=== PATIENT | female | born 1995 | race African-American/Black ===

== ENCOUNTER 2017-11-06 09:32 | Emergency (ER) | payer SELFPAY | END 2017-11-06 23:50 | disposition left against medical advice (07) | LOC: ERS 09:32 | DX: Z53.21 Procedure and treatment not carried out due to patient leaving prior to being seen by health care provider (principal) ==

== ENCOUNTER 2018-07-11 08:30 | Emergency (ER) | payer SELFPAY ==
[2018-07-11 09:24] LABS: ALT (SGPT) 13 U/L (8-55); AST (SGOT) 18 U/L (5-34); Albumin 4.4 g/dL (3.5-5.0); Alkaline Phosphatase 45 U/L (40-150); Anion Gap 14 mmol/L (10-20); BUN (Urea Nitrogen) 14 mg/dL (7.0-18.7); Bilirubin, Total 0.5 mg/dL (0.2-1.2); Calc. Creatinine Clearance 0 mL/min (70-130); Calcium 9.6 mg/dL (7.8-10.44); Carbon Dioxide 23 mmol/L (22-29); Chloride 106 mmol/L (98-107); Estimated GFR-MDRD Greater than 90; Globulin 3.6 g/dL (2.4-3.5); Glucose 95 mg/dL (70-105); Lipase 23 U/L (8-78); Potassium 3.4 mmol/L (3.5-5.1); Sodium 140 mmol/L (136-145)
[2018-07-11 09:30] LABS: #Lymphocytes 1.1 thou/uL (1.20-3.40); #Monocytes 0.3 thou/uL (0.11-0.59); #Neutrophils 4.5 thou/uL (1.40-6.50); %Basophils 0.3 % (0.0-1.0); %Eosinophils 0.7 % (0.0-10.0); %Lymphocytes 18.9 % (21.0-51.0); %Neutrophils 75.1 % (42.0-75.0); Hemoglobin 9.4 g/dL (12.0-16.0); Hypochromia MODERATE=16-30 cells (100X) (0-5/hpf); MDiff Complete? YES; Mean Corpuscular HGB CONC 28.8 g/dL (32.0-36.0); Mean Corpuscular Volume 66.1 fL (78.0-98.0); Mean Platelet Volume 10.4 fL (7.4-10.4); Microcytosis MODERATE=15-30 cells (100X) (0-5/hpf); PLT Morphology Comment Appears Adequate; Platelet Count 246 thou/uL (130-400); Polychromasia SLIGHT = 2-3 cells (100X) (0-2/hpf); RBC Distribution Width 16.7 % (11.5-14.5); Red Blood Cell (RBC) Count 4.95 mill/uL (4.20-5.40); Reflex for Review?? YES
[2018-07-11 09:36] LABS: Bilirubin Negative (Negative); Blood, Urine Negative (Negative); Clarity CLEAR (Clear); Glucose, Urine (Dipstick) Negative (Negative); Leukocyte Small (Negative); Nitrite Negative (Negative); Protein, Urine (Dipstick) Negative (Neg-Trace); Specific Gravity, Urine 1.034 (1.002-1.036); pH, Urine 5.5 (5.0-9.0)
[2018-07-11 09:39] LABS: Bacteria/HPF Rare-Few HPF (None Seen); Hyaline Casts/LPF 0-3 HYALINE CAST LPF (0-3 Hyaline); Pathc Cast-AUWi Flag 0.29 (0-2.49); RBC/HPF 0-3 HPF (0-3)
[2018-07-11 09:42] LABS: Pregnancy Test - Urine (BHCG) Negative (Negative); Pregu Control Background? CLEAR/WHITE (CLR/WHITE); Pregu Control Bar Appear? YES (CONTROL BAR); Specific Gravity 1.034 (1.002-1.036)
== END 2018-07-11 10:15 | disposition home or self-care (01) ==
LOC: ERS 08:30
DX: N39.0 Urinary tract infection, site not specified (principal)
CPT/HCPCS: 36415; 80053; 81003; 81015; 81025; 83690; 85025; 85060; 87086; 99284

== ENCOUNTER 2019-01-23 13:10 | Outpatient (CLI) | payer OTHER ==
--- NOTE | 2019-01-23 13:56 | ULT ---
EXAM: OB ultrasound COMPARISON: None HISTORY: First trimester . TECHNIQUE: Multiplanar grayscale and color Doppler transabdominal sonographic images are obtained. FINDINGS: There is a single intrauterine gestation in variable presentation. Cardiac Doppler demonstr ates heart tones with a heart rate of 155 beats per minute. The placenta is located anteriorly and is low lying. There is a normal amount of amniotic fluid. The cervical length based on transabdominal imaging measures 4.87 centimeters. biometry measurements: BPD 2.09 cm -- 13 weeks 3 days HC 8 cm -- 13 weeks 3 days AC 5.93 cm -- 12 weeks 5 days FL 1.05 cm -- 13 weeks 1 day The estimated gestational age by ultrasound is 13 weeks 1 day with an SUZETTE on07/30/2019. Gestational age by the last menstrual period is 11 weeks 4 days. The estimated weight by ultrasound is unable to be determined due to gestational age. The anatomical structures are not well evaluated due to early gestational age. IMPRESSION: 1. Low-lying placenta. Follow-up evaluation in 4-6 weeks is recommended. 2. Single intrauterine gestation in variable presentation with heart tones documented. Estimate d gestational age by ultrasound is 13 weeks 1 day.
== END 2019-01-23 13:11 | disposition home or self-care (01) ==
LOC: SCSULT 13:10
PROVIDERS: ATTEND Nurse Practitioner
DX: Z34.81 Encounter for supervision of other normal pregnancy, first trimester (principal); Z3A.13 13 weeks gestation of pregnancy
CPT/HCPCS: 76805; 76857

== ENCOUNTER 2019-03-31 15:46 | Outpatient (CLI) | payer OTHER ==
--- NOTE | 2019-03-31 16:53 | ULT ---
US OB Complete STANDARD History: Anatomy scan. Comparison: None. Findings: Real-time grayscale, color, and spectral analysis of the gravid uterus was performed. Single viable intrauterine with average ultrasound age 22 week 3 day with estimated date of delivery August 01, 2019. Estimated weight is 1 lb. 2 oz., 14th percentile. Biometry: Biparietal diameter: 5.38 cm, 22 week 3 day Head circumference: 20.19 cm, 22 week 2 day Abdominal circumference: 17.44 cm, 22 week 3 day Femur length: 3.9 cm, 22 week 4 day Amniotic fluid index: 15.6 cm. heart rate documented at 152 bpm. The position is vertex and the placenta is anterior. No placenta previa. The spine, bladder, diaphragm, kidneys, lateral ventricles, cerebellum, three-vessel cord, nose/lips, four-chamber heart, stomach are all normal. Impression: Single viable intrauterine with average ultrasound age 22 week 3 day with estim ated date of delivery August 01, 2019.
== END 2019-03-31 15:47 | disposition home or self-care (01) ==
LOC: SCSULT 15:46
PROVIDERS: ATTEND Nurse Practitioner
DX: Z34.82 Encounter for supervision of other normal pregnancy, second trimester (principal); Z3A.22 22 weeks gestation of pregnancy
CPT/HCPCS: 76805

== ENCOUNTER 2019-05-18 15:01 | Outpatient (CLI) | payer OTHER ==
--- NOTE | 2019-05-18 15:41 | ULT ---
US OB Complete STANDARD History: Evaluate growth Comparison: Pelvic ultrasound March 2019 Findings: Real-time grayscale color and spectral analysis of the pelvis was performed transabdominal approach. Single viable intrauterine with average ultrasound age 29 week 4 day with estimated date of delivery July 30, 2019. Estimated weight: 3 lbs. 1 oz., 20th percentile Biometry: Biparietal diameter: 7.32 cm, 29 week 2 day Head circumference: 27.04 cm, 29 week 3 day Abdominal circumference: 24.58 cm, 28 weeks 6 day Femur length: 5.8 cm, 30 week 2 day Normal amniotic fluid index of 16.8 cm. Anterior placenta. The fetus is in vertex position. Impression: Normal single viable intrauterine as described.
== END 2019-05-18 15:02 | disposition home or self-care (01) ==
LOC: SCSULT 15:01
PROVIDERS: ATTEND Obstetrics & Gynecology
DX: Z34.83 Encounter for supervision of other normal pregnancy, third trimester (principal); Z3A.29 29 weeks gestation of pregnancy
CPT/HCPCS: 76805

== ENCOUNTER 2019-12-22 14:53 | Emergency (ER) | payer OTHER ==
[2019-12-22] MEDS ORDERED: Metoclopramide HCl 10 MG/2 ML VIAL ONE (15:23)
[2019-12-22] MEDS ORDERED: diphenhydrAMINE 25 MG CAP ONE ×2 (15:23→15:31)
[2019-12-22] MEDS ORDERED: Acetaminophen 500 MG TAB ONE (15:23)
[2019-12-22] MEDS ORDERED: Metoclopramide HCl 10 MG TAB ONE (15:33)
== END 2019-12-22 15:57 | disposition home or self-care (01) ==
LOC: ERS 14:53
DX: O99.89 Other specified diseases and conditions complicating pregnancy, childbirth and the puerperium (principal); R51 Headache; O99.282 Endocrine, nutritional and metabolic diseases complicating pregnancy, second trimester; E86.0 Dehydration; Z3A.20 20 weeks gestation of pregnancy
CPT/HCPCS: 99283; J2765; Q0163

== ENCOUNTER 2020-01-19 06:55 | Outpatient (CLI) | payer OTHER ==
--- NOTE | 2020-01-19 07:37 | ULT ---
Obstetric sonogram HISTORY: Second trimester gestation. evaluation. FINDINGS: Single intrauterine gestation in breech presentation. Cervix is closed and 4.0 cm. Amniotic fluid is within normal limits. Grade 0 placenta is anterior. No gross intracranial abnormalities are evident. spine and kidneys are intact as visualized. Four-chamber heart motion at 146 bpm. Three-vessel cord shows a normal insertion. Measurements are as follows: Biparietal diameter 22 weeks 0 days Head circumference 21 weeks 2 days Abdominal circumference 20 weeks 3 days Femur length 22 weeks 1 day [place] 2 percentile. Estimated date of delivery based on today's sonogram 05/27/2020. IMPRESSION : Single viable intrauterine gestation. Measurements correlate with 21 weeks 4 days gestational age, so mewhat small compared to the reported age based on LMP.
== END 2020-01-19 06:56 | disposition home or self-care (01) ==
LOC: BICULT 06:55
PROVIDERS: ATTEND Family Medicine
DX: Z34.82 Encounter for supervision of other normal pregnancy, second trimester (principal); Z3A.21 21 weeks gestation of pregnancy
CPT/HCPCS: 76805

== ENCOUNTER 2020-04-19 19:17 | Day surgery (SDC) | payer OTHER ==
[2020-04-19 20:55] LABS: Amnisure Test No Membranes Rupture (No Rupture)
[2020-04-19 20:56] LABS: Amnisure Internal Control QC ACCEPTABLE (ACCEPTABLE)
[2020-04-19 20:59] VITALS: BP 128/75; TEMP 97.6; BMI 33.4
[2020-04-19] MEDS ORDERED: hydrALAZINE 20 MG/ML VIAL SLOW IVP PRN (21:37)
--- NOTE | 2020-04-19 22:23 | PDOC.EVN ---
Event Note - Event Note Event Note: bpp 02/26. PT is being discharged home with precautions.
--- NOTE | 2020-04-19 22:37 | ULT ---
ULTRASOUND BIOPHYSICAL PROFILE: HISTORY: distress FINDINGS: A single live intrauterine gestation is seen. heart rate:131bpm SAM: 19.4 cm Placenta: Posterior without placenta previa Cervical length: 4.22 cm OB biophysical profile: tone: 2 breathin movements: 2 Amniotic fluid: 2 IMPRESSION: The ultrasound biophysical profile score is 8 out of 8.
--- NOTE | 2020-04-19 22:51 | PRG ---
DATE OF SERVICE: 04/19/2020 PRIMARY OB: Dr. Stefano Jean. CHIEF COMPLAINT: Leakage of fluid. HISTORY OF PRESENT ILLNESS: The patient is a 24-year-old, G4, P3 female with an intrauterine at 35 weeks and 2 days, presenting to Labor and Delivery after experiencing some leakage of fluid while she was out shopping. This was episodic in nature. It happened again prior to coming to the hospital. After she went to the bathroom, she noticed that she has not had any more leakage. She denies vaginal bleeding or change in discharge. She denies any repetitive uterine contractions. She denies fever, cough, headache, chest pain, shortness of breath, nausea, vomiting, diarrhea, constipation, hip problems, knee problems, or muscle weakness. She does have some SI joint pain that causes her some discomfort. PAST MEDICAL HISTORY: Negative. PAST SURGICAL HISTORY: She has had a tonsillectomy. ALLERGIES: NO KNOWN DRUG ALLERGIES. SOCIAL HISTORY: The patient denies drug, alcohol, or tobacco use. OB HISTORY: The patient has had three term vaginal deliveries. OB LABS: Blood type is O positive. Antibody screen is negative. RPR is nonreactive in the first and third trimester. HIV is nonreactive in the first and third trimester. Hepatitis B surface antigen is negative. She is rubella immune. She has a history of Chlamydia positive in this . MEDICATIONS: Include: 1. Iron. 2. Zoloft. 3. Acyclovir. 4. Nexium. 5. vitamins. REVIEW OF SYSTEMS: Per HPI. PHYSICAL EXAMINATION: VITAL SIGNS: Blood pressure is 113/64, heart rate of 84, and saturating 100% on room air. GENERAL: She appears to be in no acute distress. She is alert and oriented, cooperative, and pleasant to interact with. HEAD: Normocephalic and atraumatic. LUNGS: Clear to auscultation bilaterally. HEART: Has a regular rate and rhythm. ABDOMEN: Gravid, soft, and nontender. EXTREMITIES: Nontender and nonedematous. She does have some SI joint tenderness on the right side. CERVICAL: Per nursing staff is 1, thick, and -3 station. Vulva is without masses, lesions, or erythema. Vagina is moist. There is no pulling on Valsalva or coughing. heart tracing shows the fetus with a baseline in the 140s difficult to get a continuous strip due to habitus and tocometer is not showing any regular contractions. BPP is pending. AmniSure test is negative. ASSESSMENT AND PLAN: The patient is a 24-year-old, G4, P3 female with an intrauterine at 35 weeks and 2 days, presenting for leakage of fluid. There is no evidence of rupture of membranes by exam or by lab. We had difficulty tracing the heart tracing enough to get a reactive NST. BPP has been ordered and assuming that it is 8/8. The patient will be discharged home. Should it be less than 8/8, decisions will be made what to do next at that time. Anticipate discharge home. Job ID: [id number]
== END 2020-04-19 22:30 | disposition home or self-care (01) ==
LOC: L&D/OP 19:17
PROVIDERS: ATTEND Family Medicine
DX: O99.89 Other specified diseases and conditions complicating pregnancy, childbirth and the puerperium (principal); N89.8 Other specified noninflammatory disorders of vagina; Z3A.35 35 weeks gestation of pregnancy; Z79.899 Other long term (current) drug therapy; Z86.19 Personal history of other infectious and parasitic diseases; Z91.018 Allergy to other foods
CPT/HCPCS: 76819; 84112; 99284

== ENCOUNTER 2020-04-20 15:18 | Emergency (ER) | payer OTHER ==
[2020-04-21 11:56] LABS: SARS-CoV-2 MS2 Positive; SARS-CoV-2 N Gene Negative; SARS-CoV-2 S Gene Negative; SARS-CoV-2 by NAA Not Detected (NotDetected); SARS-CoV-2 orf1ab Negative
== END 2020-04-20 15:42 | disposition home or self-care (01) ==
LOC: ERS 15:18
DX: Z20.828 Contact with and (suspected) exposure to other viral communicable diseases (principal)
CPT/HCPCS: 87635; 99283; U0003

== ENCOUNTER 2020-04-29 08:56 | Day surgery (SDC) | payer OTHER ==
[2020-04-29 09:26] VITALS: BP 129/75; TEMP 97.7
[2020-04-29 09:37] VITALS: BMI 36.5
[2020-04-29] MEDS ORDERED: hydrALAZINE 20 MG/ML VIAL SLOW IVP PRN (10:37)
--- NOTE | 2020-04-29 12:49 | PRG ---
DATE OF SERVICE: 04/29/2020 PRIMARY PARTNERSHIP MANAGER: Stefano Jean MD CHIEF COMPLAINT: Abdominal pain. HISTORY OF PRESENT ILLNESS: The patient is a 24-year-old, G4, P3, female, with an intrauterine at 36 weeks and 5 days, presenting to Labor and Delivery with a sharp lower abdominal pain that began this morning. By the time I evaluated the patient shortly after she arrived, she reports her pain has disappeared. She reports that the pain was in her lower abdomen. She was not sure where it was coming from or why it was occurring and came for evaluation. She does report that she was diagnosed with urinary tract infection last week and has failed to apple picker antibiotics that were prescribed to her, but has agreed to pick them up today. The patient reports good movement. She denies fever, cough, headache, chest pain, shortness of breath, nausea, vomiting, diarrhea, constipation, hip problems, knee problems, or muscle weakness. She denies vaginal bleeding, leakage of fluid, change in discharge, or urinary urgency or frequency. PAST MEDICAL HISTORY: Negative. PAST SURGICAL HISTORY: Tonsillectomy. SOCIAL HISTORY: Denies drug, alcohol, or tobacco use. OBSTETRIC LABORATORY DATA: Blood type is O positive. Antibody screen is negative. RPR is nonreactive in the 1st and 3rd trimester. HIV is nonreactive in the 1st and 3rd trimester. Hepatitis B surface antigen is negative. She is rubella immune. She has an initial hemoglobin and hematocrit of 7.4 and 27.2 with the most recent CBC done on 02/18/2020, showing hemoglobin of 7.4 and hematocrit 26.8. One-hour Glucola is 65. GBS results are unavailable at this time. REVIEW OF SYSTEMS: Per HPI. PHYSICAL EXAMINATION: VITAL SIGNS: Blood pressure is 129/75, heart rate of 80, respiratory rate of 18, saturating 100% on room air, and temperature 97.7. GENERAL: She appears to be in no acute distress. She is alert, oriented, cooperative, and pleasant to interact with. HEAD: Normocephalic and atraumatic. LUNGS: Clear to auscultation bilaterally. HEART: Regular rate and rhythm. ABDOMEN: Gravid, soft, nontender. EXTREMITIES: Nontender and nonedematous. heart tracing shows the fetus with a baseline in the 130s with moderate long-term variability, positive 15 x 15 accelerations, no decelerations. Tocometer shows possibly some irritability, but difficult to assess. ASSESSMENT AND PLAN: The patient is a 24-year-old, G4, P3, female, with an intrauterine at 36weeks and 5 days with a known diagnosis of urinary tract infection, untreated. We did confirm by the phone that she has a prescription waiting for her, which she has agreed to go apple picker upon discharge here. Fetus has a category 1 tracing and reactive NST. The patient has been given reassurance whatever pain she was experiencing that prompted her presentation has spontaneously resolved. She has an appointment on Saturday with Dr. Jean that we have encouraged that she keep. Job ID: [id number]
== END 2020-04-29 10:40 | disposition home health service (06) ==
LOC: L&D/OP 08:56
PROVIDERS: ATTEND Family Medicine
DX: O23.43 Unspecified infection of urinary tract in pregnancy, third trimester (principal); O99.891 Other specified diseases and conditions complicating pregnancy; R10.30 Lower abdominal pain, unspecified; Z3A.36 36 weeks gestation of pregnancy

== ENCOUNTER 2020-05-09 15:14 | Inpatient (IN) | payer OTHER ==
[~2020-05-09 15:14] MED LIST: Bupivacaine/Epinephrine 0.25% 30 ML VIAL ONE
[2020-05-09] MEDS ORDERED: Lidocaine 1% (PF) 30 ML VIAL SC PRN (15:55)
[2020-05-09] MEDS ORDERED: Ondansetron PF 4 MG/2 ML Vial IVP PRN ×2 (15:55→21:18)
[2020-05-09] MEDS ORDERED: Ibuprofen 800 MG TAB PO PRN (15:55)
[2020-05-09] MEDS ORDERED: Butorphanol Tartrate 1 MG/ML VIAL SLOW IVP PRN (15:55)
[2020-05-09] MEDS ORDERED: Diphenoxylate HCl/Atropine Tablet PO PRN (15:55)
[2020-05-09] MEDS ORDERED: Promethazine HCl 25 MG/ML VIAL IM PRN ×2 (15:55→21:18)
[2020-05-09] MEDS ORDERED: HYDROcodone/Acetaminophen 5/325 mg Tablet PO PRN (15:55)
[2020-05-09] MEDS ORDERED: Carboprost 250 MCG/ML AMP IM PRN (15:55)
[2020-05-09] MEDS ORDERED: hydrALAZINE 20 MG/ML VIAL SLOW IVP PRN (15:55)
[2020-05-09] MEDS ORDERED: Misoprostol 200 MCG TAB PR PRN (15:55)
[2020-05-09 15:56] VITALS: BMI 36.5
[2020-05-09] MEDS ORDERED: NS w/ Oxytocin 10 units 500 ML IV SCH ×2 (16:00)
[2020-05-09 17:41] LABS: Hemoglobin 7.4 g/dL (12.0-16.0); Mean Corpuscular HGB CONC 29.3 g/dL (32.0-36.0); Mean Corpuscular Hemoglobin 17.8 pg (27.0-31.0); Mean Corpuscular Volume 60.8 fL (78.0-98.0); Mean Platelet Volume 5.7 fL (7.4-10.4); Platelet Count 216 thou/uL (130-400); RBC Distribution Width 18.2 % (11.5-14.5); Red Blood Cell (RBC) Count 4.16 mill/uL (4.20-5.40)
[2020-05-09 18:09] LABS: ALT (SGPT) Less than 7 U/L (8-55); AST (SGOT) 14 U/L (5-34); Albumin 3.6 g/dL (3.5-5.0); Alkaline Phosphatase 81 U/L (40-110); Anion Gap 11 mmol/L (10-20); BUN (Urea Nitrogen) 9 mg/dL (7.0-18.7); Bilirubin, Total 0.4 mg/dL (0.2-1.2); Calc. Creatinine Clearance 209 mL/min (70-130); Calcium 8.8 mg/dL (7.8-10.44); Carbon Dioxide 22 mmol/L (22-29); Chloride 106 mmol/L (98-107); Estimated GFR-MDRD Greater than 90; Globulin 3.7 g/dL (2.4-3.5); Glucose 80 mg/dL (70-105); Potassium 3.6 mmol/L (3.5-5.1); Protein, Total 7.3 g/dL (6.0-8.3); Sodium 135 mmol/L (136-145)
[2020-05-09 18:11] LABS: Creatinine, Urine 298.61 mg/dL (47-110)
[2020-05-09 18:21] LABS: HBSAg Index 0.18 S/CO (0-0.99); Hep B Surf Ag Non-Reactive S/CO (NonReactive)
[2020-05-09 18:27] LABS: Syphilis Antibody Nonreactive (Nonreactive); Syphilis Antibody Index 0.04 S/CO (<1.00 Non-Reactive)
[2020-05-09] MEDS ORDERED: Penicillin G Potassium 5 MILL.UNITS in Sodium Chloride 0.9% 100 ML IVPB SCH (18:30)
[2020-05-09] MEDS: Misoprostol 100 MCG TAB PO SCH ×2 (18:37→21:55)
[2020-05-09] MEDS ORDERED: Fentanyl 4 mcg/Bup 0.1% Cadd 100 ML ONE (20:40)
[2020-05-09] MEDS ORDERED: Naloxone HCl 0.4 mg/ml Vial IVP PRN ×2 (21:18)
[2020-05-09] MEDS ORDERED: Lactated Ringer's 500 ML IV PRN (21:18)
[2020-05-09] MEDS ORDERED: diphenhydrAMINE 50 MG/ML VIAL IVP PRN (21:18)
[2020-05-09] MEDS ORDERED: Acetaminophen 325 MG TAB PO PRN (21:18)
[2020-05-09] MEDS ORDERED: EPHEDRINE 25 MG/5 ML SYRINGE SLOW IVP PRN (21:18)
[2020-05-09] MEDS ORDERED: Communication Order-Pharmacy FS SCH (21:30)
[2020-05-09] MEDS: Fentanyl 4 mcg/Bupivacaine 0.1% Cassette 100 ML EPIDURAL SCH (21:53)
[2020-05-09] MEDS: Lactated Ringer's 1,000 ML IV SCH (21:55)
[2020-05-09] MEDS: Penicillin G 2.5 MILL.units 2.5 MILL.UNITS in Premix Bag 1 BAG IVPB SCH ×2 (21:56→23:11)
[2020-05-10] MEDS ORDERED: Fentanyl 4 mcg/Bup 0.1% Cadd 100 ML ONE (02:39)
[2020-05-10] MEDS: Misoprostol 100 MCG TAB PO SCH ×2 (02:43→03:48)
[2020-05-10] MEDS: Lactated Ringer's 1,000 ML IV SCH ×2 (02:43→11:37)
[2020-05-10] MEDS: Fentanyl 4 mcg/Bupivacaine 0.1% Cassette 100 ML EPIDURAL SCH (02:50)
[2020-05-10] MEDS: Penicillin G 2.5 MILL.units 2.5 MILL.UNITS in Premix Bag 1 BAG IVPB SCH ×2 (03:01→11:31)
[2020-05-10] MEDS: NS / Oxytocin 40 units/1000ml 1,000 ML IV PRN ×2 (07:06→08:06)
[2020-05-10] MEDS ORDERED: cloNIDine 0.1 MG TAB PO PRN (07:48)
[2020-05-10] MEDS ORDERED: hydrALAZINE 20 MG/ML VIAL SLOW IVP PRN (08:22)
[2020-05-10] MEDS ORDERED: Ondansetron PF 4 MG/2 ML Vial IVP PRN (08:22)
[2020-05-10] MEDS ORDERED: Bisacodyl 10 MG SUPP PR PRN (08:22)
[2020-05-10] MEDS ORDERED: Adacel (T-DAP) 0.5 ML SYRINGE IM ONE (08:22)
[2020-05-10] MEDS ORDERED: NS / Oxytocin 40 units/1000ml 1,000 ML IV SCH (08:22)
[2020-05-10] MEDS ORDERED: Promethazine HCl 25 MG/ML VIAL IM PRN (08:22)
[2020-05-10] MEDS ORDERED: Lanolin Ointment 7 GM TUBE TOP PRN (08:22)
[2020-05-10] MEDS ORDERED: Benzocaine-Menthol 82.5 ML CAN TOP PRN (08:22)
[2020-05-10] MEDS ORDERED: Milk Of Magnesia 30 ML UDCUP PO PRN (08:22)
[2020-05-10] MEDS ORDERED: diphenhydrAMINE 25 MG CAP PO PRN (08:22)
[2020-05-10] MEDS ORDERED: HYDROcodone/Acetaminophen 5/325 mg Tablet PO PRN ×2 (08:22)
[2020-05-10] MEDS: Docusate Calcium (SURFAK) 240 MG CAP PO SCH ×2 (10:08→21:37)
[2020-05-10] MEDS: Prenatal Vitamin 1 TAB PO SCH (10:08)
[2020-05-10] MEDS ORDERED: Ferrous Sulfate 325 MG TAB PO SCH (10:15)
[2020-05-10] MEDS: Ferrous Sulfate 325 MG TAB PO SCH ×2 (10:18→16:48)
[2020-05-10 11:41] LABS: SARS-CoV-2 MS2 Positive; SARS-CoV-2 N Gene Negative; SARS-CoV-2 S Gene Negative; SARS-CoV-2 by NAA Not Detected (NotDetected); SARS-CoV-2 orf1ab Negative
[2020-05-10] MEDS: Ibuprofen 800 MG TAB PO SCH ×2 (13:40→21:36)
[2020-05-11 05:58] LABS: Hemoglobin 6.8 g/dL (12.0-16.0); Mean Platelet Volume 6.2 fL (7.4-10.4); Platelet Count 166 thou/uL (130-400); RBC Distribution Width 18.3 % (11.5-14.5); Red Blood Cell (RBC) Count 3.79 mill/uL (4.20-5.40); White Blood Cell (WBC) Count 6.8 thou/uL (4.8-10.8)
[2020-05-11] MEDS: Docusate Calcium (SURFAK) 240 MG CAP PO SCH (08:10)
[2020-05-11] MEDS: Ferrous Sulfate 325 MG TAB PO SCH (08:10)
[2020-05-11] MEDS: Ibuprofen 800 MG TAB PO SCH ×2 (08:10→13:39)
[2020-05-11] MEDS: Prenatal Vitamin 1 TAB PO SCH (08:10)
[2020-05-11 08:12] VITALS: BP 140/82; TEMP 98
== END 2020-05-11 15:40 | disposition home or self-care (01) | DRG 807 ==
LOC: L&D/OP 15:14 → L&D 17:32 → 3SW 05-10 09:21
PROVIDERS: ADMIT Family Medicine; ATTEND Family Medicine
PROC: 10E0XZZ Delivery of Products of Conception, External Approach (ICD-10-PCS; principal; 2020-05-10)
PROC: 10907ZC Drainage of Amniotic Fluid, Therapeutic from Products of Conception, Via Natural or Artificial Opening (ICD-10-PCS; 2020-05-10)
PROC: 3E0P7VZ Introduction of Hormone into Female Reproductive, Via Natural or Artificial Opening (ICD-10-PCS; 2020-05-10)
PROC: 3E033VJ Introduction of Other Hormone into Peripheral Vein, Percutaneous Approach (ICD-10-PCS; 2020-05-10)
DX: O99.824 Streptococcus B carrier state complicating childbirth (principal); Z37.0 Single live birth; Z20.828 Contact with and (suspected) exposure to other viral communicable diseases; O99.214 Obesity complicating childbirth; E66.9 Obesity, unspecified; O13.4 Gestational [pregnancy-induced] hypertension without significant proteinuria, complicating childbirth; Z3A.38 38 weeks gestation of pregnancy
CPT/HCPCS: 36415; 80053; 82570; 84156; 85027; 86780; 86850; 86900; 86901; 87340; 87635; J2405; J2540; J3490; U0003